=== PATIENT | male | born 1960 | race Caucasian/White ===

== ENCOUNTER 2016-09-05 14:43 | Outpatient (CLI) | payer OTHER ==
[~2016-09-05 14:43] MED LIST: KETOROLAC TROME10 MG PO; LEVAQUIN500 MG PO; OXYCODONE/ACETA1 TA1 PO; TAMSULOSIN HCL0.4 MG PO; ZOFRAN ODT4 MG PO
--- NOTE | 2016-09-05 18:31 | DIAGNOSTIC IMAGING REPORT ---
PROCEDURE: MR CERVICAL SPINE W/O CONT INDICATION: HX RT CLAVICLE FX,DECREASED ROM,ARM PAIN TECHNIQUE: Noncontrast T1, T2, and STIR sagittal images. T2 and gradient axial images. COMPARISON: None. FINDINGS: Normal alignment without fracture. Mild C5-6 and C6-7 degenerative changes with disc bulging. Normal craniocervical junction and cervical cord. C1-2: Normal appearance. C2-3: Normal appearance. C3-4: Normal appearance. C4-5: Normal appearance. C5-6: Small disc bulge and facet arthropathy. No foraminal or spinal stenosis. C6-7: Small disc bulge and facet arthropathy. No foraminal or spinal stenosis ananda C7-T1: Normal appearance. IMPRESSION: 1. Mild C5-6 and C6-7 degenerative changes with small disc bulges
--- NOTE | 2016-09-05 19:35 | DIAGNOSTIC IMAGING REPORT ---
PROCEDURE: MR UPPER EXTREMITY W/O CONT-RT INDICATION: HX RT CLAVICLE FX,DECREASED ROM,ARM PAIN TECHNIQUE: PD and FAT-SAT PD, axial, and coronal-oblique images. PD and STIR sagittal-oblique images. COMPARISON: None. FINDINGS: Caudal angulation of type 2 acromion resulting in mild impingement. Small partial thickness tear of the distal supraspinatus and subscapularis tendons on the articular side. There is a small subdeltoid bursal effusion. There is a rotator interval tear. Normal glenoid labrum. Bicipital tendon is unremarkable. Normal glenohumeral ligaments. IMPRESSION: 1. Mild impingement secondary to caudal angulation of type 2 acromion 2. Small partial thickness tear of the distal supraspinatus and subscapularis tendons on the articular side 3. Rotator interval tear 4. Subdeltoid bursal effusion suggestive of bursitis
== END 2016-09-05 23:00 ==
LOC: MRI SRH 14:43
DX: M50.322 Other cervical disc degeneration at C5-C6 level (principal); M50.323 Other cervical disc degeneration at C6-C7 level; M50.222 Other cervical disc displacement at C5-C6 level; M50.223 Other cervical disc displacement at C6-C7 level; S46.911A Strain of unspecified muscle, fascia and tendon at shoulder and upper arm level, right arm, initial encounter; S46.011A Strain of muscle(s) and tendon(s) of the rotator cuff of right shoulder, initial encounter; M25.411 Effusion, right shoulder